=== PATIENT | female | born 1995 | race Asian ===

== ENCOUNTER 2017-11-24 22:30 | Emergency (ER) | payer OTHER, BC ==
[2017-11-24] MEDS: IBUPROFEN 800 MG TABLET. PO (22:54)
[2017-11-24 22:56] LABS: URINE HCG POC HCG NEGATIVE (Negative)
== END 2017-11-24 23:47 | disposition home or self-care (01) ==
LOC: ER 22:30
DX: R07.81 Pleurodynia (principal); R07.89 Other chest pain; V43.62XA Car passenger injured in collision with other type car in traffic accident, initial encounter; Y93.89 Activity, other specified; Y92.89 Other specified places as the place of occurrence of the external cause; Y99.8 Other external cause status
CPT/HCPCS: 71046; 81025; 99284-25